=== PATIENT | male | born 1960 | race Caucasian/White ===

== ENCOUNTER 2017-01-09 13:32 | Outpatient (CLI) | payer OTHER ==
[2017-01-09 14:07] LABS: BASOPHILS # (AUTO) 0.1 10^3/uL (0.0-0.1); BASOPHILS % (AUTO) 0.9 %; EOSINOPHILS # (AUTO) 0.1 10^3/uL (0.0-0.7); EOSINOPHILS % (AUTO) 0.8 %; HCT - HEMATOCRIT 41.2 % (42.0-52.0); HGB - HEMOGLOBIN 14.4 g/dL (14.0-18.0); LYMPHOCYTES # (AUTO) 1.8 10^3/uL (1.5-3.5); LYMPHOCYTES % (AUTO) 24.8 %; MEAN CORPUSCULAR HEMOGLOBIN 29.7 pg (27.0-31.0); MEAN CORPUSCULAR HGB CONC 34.9 g/dL (32.0-36.0); MEAN PLATELET VOLUME 8.9 fL (7.4-11.4); MONOCYTES # (AUTO) 0.5 10^3/uL (0.0-1.0); MONOCYTES % (AUTO) 7.4 %; NEUTROPHILS # (AUTO) 4.8 10^3/uL (1.5-6.6); NEUTROPHILS % (AUTO) 66.1 %; RED BLOOD COUNT 4.85 10^6/uL (4.70-6.10); RED CELL DISTRIBUTION WIDTH 13.6 % (12.0-15.0); UNCORRECTED WHITE BLOOD COUNT 7.3 x10^3/uL; WHITE BLOOD COUNT 7.3 x10^3/uL (4.8-10.8)
[2017-01-09 14:54] LABS: ALBUMIN/GLOBULIN RATIO 1.4 (1.0-2.2); BILIRUBIN,TOTAL 1.1 mg/dL (0.2-1.0); BUN - BLOOD UREA NITROGEN 13 mg/dL (6-20); CALCIUM 9.3 mg/dL (8.5-10.3); CARBON DIOXIDE - CO2 23 mmol/L (21-32); CHLORIDE 105 mmol/L (101-111); CHOLESTEROL 204 mg/dL; CREATININE 1.1 mg/dL (0.6-1.2); GFR - MDRD 70 (>89); GLUCOSE 87 mg/dL (70-100); HDL CHOLESTEROL 29 mg/dL; LDL/HDL RATIO 4.8 (<3.6); POTASSIUM 4.1 mmol/L (3.5-5.0); SODIUM 136 mmol/L (135-145); TOTAL PROTEIN 7.3 g/dL (6.7-8.2); TRIGLYCERIDES 182 mg/dL; VLDL CHOLESTEROL 36 mg/dL
== END 2017-01-09 13:33 | disposition home or self-care (01) ==
LOC: LAB 13:32
PROVIDERS: ATTEND Family Medicine
DX: Z00.00 Encounter for general adult medical examination without abnormal findings (principal)
CPT/HCPCS: 36415; 80053; 80061; 84153; 84443; 85025

== ENCOUNTER 2018-09-19 15:30 | Outpatient (CLI) | payer OTHER, BC ==
--- NOTE | 2018-09-23 07:42 | CT Report ---
Reason: TRANSIANT SPEECH DISTURBANCE Procedure Date: 09/19/2018 Accession Number: [id number] / [id number] Procedure: CT - HEAD WO CPT Code: FULL RESULT: EXAM: CT HEAD EXAM DATE: 09/19/2018 03:30 PM. CLINICAL HISTORY: Transient speech disturbance. COMPARISON: None. TECHNIQUE: Multiaxial CT images were obtained from the foramen magnum to the vertex. Reformats: Sagittal and coronal. IV contrast: None. In accordance with CT protocol optimization, one or more of the following dose reduction techniques were utilized for this exam: automated exposure control, adjustment of mA and/or KV based on patient size, or use of iterative reconstructive technique. FINDINGS: Parenchyma: No intraparenchymal hemorrhage. No evidence of mass, midline shift. Galvan-white differentiation is distinct. Extraaxial Spaces: Normal for age. No subdural or epidural collections identified. Ventricles: Normal in size and position. Sinuses and Orbits: Imaged paranasal sinuses, orbits, and mastoids show no significant abnormality. Bones: No evidence of fracture or calvarial defect. Other: None. IMPRESSION: Normal head CT. RADIA
== END 2018-09-19 15:31 | disposition home or self-care (01) ==
LOC: DI 15:30
PROVIDERS: ATTEND Family Medicine
DX: R47.89 Other speech disturbances (principal)
CPT/HCPCS: 70450

== ENCOUNTER 2018-09-25 11:16 | Outpatient (CLI) | payer OTHER, BC ==
[2018-09-25 11:34] LABS: BASOPHILS % (AUTO) 0.6 %; EOSINOPHILS # (AUTO) 0.1 10^3/uL (0.0-0.7); EOSINOPHILS % (AUTO) 1.3 %; HGB - HEMOGLOBIN 14.2 g/dL (14.0-18.0); LYMPHOCYTES # (AUTO) 1.4 10^3/uL (1.5-3.5); LYMPHOCYTES % (AUTO) 21.5 %; MEAN CORPUSCULAR HEMOGLOBIN 29.3 pg (27.0-31.0); MEAN CORPUSCULAR HGB CONC 33.9 g/dL (32.0-36.0); MEAN CORPUSCULAR VOLUME 86.4 fL (80.0-94.0); MEAN PLATELET VOLUME 8.5 fL (7.4-11.4); MONOCYTES # (AUTO) 0.5 10^3/uL (0.0-1.0); MONOCYTES % (AUTO) 7.2 %; NEUTROPHILS # (AUTO) 4.5 10^3/uL (1.5-6.6); NEUTROPHILS % (AUTO) 69.4 %; PLT - PLATELET COUNT 211 10^3/uL (130-450); RED BLOOD COUNT 4.85 10^6/uL (4.70-6.10); RED CELL DISTRIBUTION WIDTH 13.3 % (12.0-15.0); WHITE BLOOD COUNT 6.4 x10^3/uL (4.8-10.8)
[2018-09-25 12:02] LABS: ALBUMIN 4.2 g/dL (3.2-5.5); ALBUMIN/GLOBULIN RATIO 1.2 (1.0-2.2); ALKALINE PHOSPHATASE 67 IU/L (42-121); ALT ALANINE AMINOTRANSFERASE 22 IU/L (10-60); AST ASPARTATE AMINOTRANSFERASE 30 IU/L (10-42); BILIRUBIN,TOTAL 0.7 mg/dL (0.2-1.0); BUN - BLOOD UREA NITROGEN 15 mg/dL (6-20); CALCIUM 8.9 mg/dL (8.5-10.3); CARBON DIOXIDE - CO2 23 mmol/L (21-32); CHLORIDE 103 mmol/L (101-111); CHOL/HDL RATIO 6.5 (<5.0); CHOLESTEROL 235 mg/dL; GFR - MDRD 77 (>89); GLUCOSE 102 mg/dL (70-100); HDL CHOLESTEROL 36 mg/dL; LDL CHOLESTEROL,CALCULATED 167 mg/dL; LDL/HDL RATIO 4.6 (<3.6); SODIUM 135 mmol/L (135-145); TOTAL PROTEIN 7.7 g/dL (6.7-8.2); VLDL CHOLESTEROL 32 mg/dL
[2018-09-26 12:57] LABS: HEPATITIS B SURFACE ANTIGEN NON-REACTIVE (NON-REACTIVE)
== END 2018-09-25 11:17 | disposition home or self-care (01) ==
LOC: LAB 11:16
PROVIDERS: ATTEND Family Medicine
DX: Z00.00 Encounter for general adult medical examination without abnormal findings (principal); E78.5 Hyperlipidemia, unspecified; Z11.59 Encounter for screening for other viral diseases
CPT/HCPCS: 36415; 80053; 80061; 83721; 84153; 84443; 85025; 87340

== ENCOUNTER 2022-02-27 13:41 | Outpatient (CLI) | payer OTHER ==
[2022-02-27 20:09] LABS: BASOPHILS % (AUTO) 0.4 %; EOSINOPHILS # (AUTO) 0.1 10^3/uL (0.0-0.7); EOSINOPHILS % (AUTO) 1.1 %; HCT - HEMATOCRIT 44.6 % (42.0-52.0); HGB - HEMOGLOBIN 15.3 g/dL (14.0-18.0); LYMPHOCYTES # (AUTO) 1.4 10^3/uL (1.5-3.5); LYMPHOCYTES % (AUTO) 25.1 %; MEAN CORPUSCULAR HEMOGLOBIN 30.1 pg (27.0-31.0); MEAN CORPUSCULAR HGB CONC 34.3 g/dL (32.0-36.0); MEAN CORPUSCULAR VOLUME 87.8 fL (80.0-94.0); MEAN PLATELET VOLUME 11.7 fL (7.4-11.4); MONOCYTES # (AUTO) 0.5 10^3/uL (0.0-1.0); MONOCYTES % (AUTO) 8.1 %; NEUTROPHILS # (AUTO) 3.7 10^3/uL (1.5-6.6); NEUTROPHILS % (AUTO) 64.9 %; PLT - PLATELET COUNT 217 10^3/uL (130-450); RED BLOOD COUNT 5.08 10^6/uL (4.70-6.10); RED CELL DISTRIBUTION WIDTH 12.7 % (12.0-15.0); WHITE BLOOD COUNT 5.7 x10^3/uL (4.8-10.8)
[2022-02-27 20:34] LABS: THYROID STIMULATING HORMONE 1.5 uIU/mL (0.34-5.60)
[2022-02-27 20:35] LABS: ALBUMIN 4.3 g/dL (3.2-5.5); ALBUMIN/GLOBULIN RATIO 1.2 (1.0-2.2); ALKALINE PHOSPHATASE 61 IU/L (42-121); ALT ALANINE AMINOTRANSFERASE 25 IU/L (10-60); AST ASPARTATE AMINOTRANSFERASE 25 IU/L (10-42); BILIRUBIN,TOTAL 0.7 mg/dL (0.2-1.0); BUN - BLOOD UREA NITROGEN 17 mg/dL (6-20); CALCIUM 9.4 mg/dL (8.5-10.3); CARBON DIOXIDE - CO2 22 mmol/L (21-32); CHLORIDE 107 mmol/L (101-111); CHOL/HDL RATIO 6.8 (<5.0); CHOLESTEROL 226 mg/dL; CREATININE 1.1 mg/dL (0.6-1.2); GFR - MDRD 69 (>89); GLUCOSE 95 mg/dL (70-100); HDL CHOLESTEROL 33 mg/dL; LDL CHOLESTEROL,CALCULATED 129 mg/dL; LDL/HDL RATIO 3.9 (<3.6); SODIUM 137 mmol/L (135-145); TOTAL PROTEIN 7.9 g/dL (6.7-8.2); TRIGLYCERIDES 320 mg/dL; VLDL CHOLESTEROL 64 mg/dL
[2022-02-27 21:13] LABS: ESTIMATED AVERAGE GLUCOSE 91 mg/dL (70-100); HEMOGLOBIN A1c% 4.8 % (4.27-6.07)
== END 2022-02-27 13:42 | disposition home or self-care (01) ==
LOC: LAB.S 13:41
PROVIDERS: ATTEND Family Medicine
DX: Z00.00 Encounter for general adult medical examination without abnormal findings (principal)
CPT/HCPCS: 36415; 80053; 80061; 83036; 83721; 84153; 84443; 85025

== ENCOUNTER 2023-08-16 13:16 | Outpatient (CLI) | payer OTHER ==
[2023-08-16 13:30] LABS: HCT - HEMATOCRIT 23.8 % (42.0-52.0); LYMPHOCYTES # (AUTO) 0.7 10^3/uL (1.5-3.5); LYMPHOCYTES % (AUTO) 69.1 %; MEAN CORPUSCULAR HEMOGLOBIN 35.6 pg (27.0-31.0); MEAN CORPUSCULAR HGB CONC 33.6 g/dL (32.0-36.0); MEAN CORPUSCULAR VOLUME 105.8 fL (80.0-94.0); MEAN PLATELET VOLUME 9.8 fL (7.4-11.4); MONOCYTES % (AUTO) 4.3 %; NEUTROPHILS % (AUTO) 26.6 %; NRBC ABSOLUTE COUNT (AUTO) 0.03 x10^3/uL; NUCLEATED RED BLOOD CELLS AUTO 3.2 /100WBC; PLT - PLATELET COUNT 71 10^3/uL (130-450); RED BLOOD COUNT 2.25 10^6/uL (4.70-6.10); RED CELL DISTRIBUTION WIDTH 20.9 % (12.0-15.0)
[2023-08-16 13:47] LABS: ALBUMIN 4.4 g/dL (3.2-5.5); ALBUMIN/GLOBULIN RATIO 1.5 (1.0-2.2); ALKALINE PHOSPHATASE 62 IU/L (42-121); ALT ALANINE AMINOTRANSFERASE 13 IU/L (10-60); AST ASPARTATE AMINOTRANSFERASE 15 IU/L (10-42); BILIRUBIN,TOTAL 0.8 mg/dL (0.2-1.0); BUN - BLOOD UREA NITROGEN 20 mg/dL (6-20); CALCIUM 9.2 mg/dL (8.5-10.3); CARBON DIOXIDE - CO2 24 mmol/L (21-32); CHLORIDE 107 mmol/L (101-111); CHOL/HDL RATIO 5.7 (<5.0); CHOLESTEROL 147 mg/dL; CREATININE 1.1 mg/dL (0.6-1.3); GFR - MDRD 68 (>89); GLUCOSE 94 mg/dL (74-104); HDL CHOLESTEROL 26 mg/dL; LDL CHOLESTEROL,CALCULATED 87 mg/dL; LDL/HDL RATIO 3.3 (<3.6); SODIUM 136 mmol/L (135-145); TOTAL PROTEIN 7.3 g/dL (6.4-8.9); TRIGLYCERIDES 168 mg/dL (48-352); VLDL CHOLESTEROL 34 mg/dL
[2023-08-16 13:52] LABS: NEUTROPHILS # (AUTO) 0.3 10^3/uL (1.5-6.6); SLIDE REVIEW? Indicated; WHITE BLOOD COUNT 0.9 x10^3/uL (4.8-10.8)
[2023-08-16 13:53] LABS: RBC MORPHOLOGY (MULTIPLE) 4+ ANISOCYTOSIS (NORMAL)
[2023-08-16 14:07] LABS: THYROID STIMULATING HORMONE 1.74 uIU/mL (0.34-5.60)
== END 2023-08-16 13:17 | disposition home or self-care (01) ==
LOC: LAB 13:16
PROVIDERS: ATTEND Family Medicine
DX: E78.2 Mixed hyperlipidemia (principal); I10 Essential (primary) hypertension; Z12.5 Encounter for screening for malignant neoplasm of prostate; Z13.220 Encounter for screening for lipoid disorders; Z13.6 Encounter for screening for cardiovascular disorders; Z13.29 Encounter for screening for other suspected endocrine disorder
CPT/HCPCS: 36415; 80053; 80061; 83721; 84153; 84443; 85025

== ENCOUNTER 2023-08-17 07:46 | Outpatient (CLI) | payer OTHER | END 2023-08-17 23:59 | disposition critical access hospital (66) | LOC: EMS 07:46 | DX: R42 Dizziness and giddiness (principal); R55 Syncope and collapse | CPT/HCPCS: A0425; A0427 ==

== ENCOUNTER 2023-08-17 08:35 | Emergency (ER) | payer OTHER ==
[2023-08-17 09:16] LABS: HCT - HEMATOCRIT 22.7 % (42.0-52.0); HGB - HEMOGLOBIN 7.8 g/dL (14.0-18.0); LYMPHOCYTES # (AUTO) 0.4 10^3/uL (1.5-3.5); LYMPHOCYTES % (AUTO) 55.7 %; MEAN CORPUSCULAR HEMOGLOBIN 35.9 pg (27.0-31.0); MEAN CORPUSCULAR HGB CONC 34.4 g/dL (32.0-36.0); MEAN CORPUSCULAR VOLUME 104.6 fL (80.0-94.0); MEAN PLATELET VOLUME 9.7 fL (7.4-11.4); MONOCYTES # (AUTO) 0.1 10^3/uL (0.0-1.0); MONOCYTES % (AUTO) 7.1 %; NEUTROPHILS % (AUTO) 37.2 %; NRBC ABSOLUTE COUNT (AUTO) 0.02 x10^3/uL; NUCLEATED RED BLOOD CELLS AUTO 2.9 /100WBC; PLT - PLATELET COUNT 68 10^3/uL (130-450); RED BLOOD COUNT 2.17 10^6/uL (4.70-6.10)
[2023-08-17] MEDS: SODIUM CHLORIDE 0.9% 1,000 ML IV STA (09:16)
--- NOTE | 2023-08-17 09:16 | ED Physician Documentation ---
History of Present Illness - Stated complaint Stated Complaint: DIZZY - Chief complaint Chief Complaint: Neuro - History obtained from History obtained from: Patient - Additonal information Additional information: Patient is a 63-year-old male presenting for evaluation of feeling dizzy and lightheaded starting this morning while he was in the shower. Patient states that he had blood work done yesterday by his PCP as he had recently been feeling unwell. He was told that his blood counts were low and that he should come to the emergency department last night around 5 PM but he states he did not feel up to it. This morning he was in a drive himself but while in the shower started feeling lightheaded as if he was going to faint so called 911. He reports feeling better with sitting down and having his head hanging down. Denies headache, chest pain, shortness of air. Has had a productive cough for the last few days. is ill with GI and cold-like symptoms at home. Patient denies abdominal pain, vomiting or diarrhea. He does report having decreased appetite recently. EMS reports that he was positive for orthostatics. Patient's only medication is omeprazole. He denies drug or alcohol use. Denies head injury. Review of Systems Constitutional: denies: Fever Cardiac: denies: Chest pain / pressure Respiratory: reports: Cough. denies: Dyspnea GI: denies: Abdominal Pain, Vomiting : denies: Dysuria Musculoskeletal: denies: Extremity swelling Neurologic: denies: Syncope, Headache PD PAST MEDICAL HISTORY - Past Medical History Past Medical History: Yes GI: GERD - Past Surgical History Past Surgical History: Yes General: Appendectomy - Allergies Allergies/Adverse Reactions: Allergies Allergy/AdvReac Type Severity Reaction Status Date / Time No Known Drug Allergies Allergy Verified 08/17/23 08:51 - Social History Does the pt smoke?: No Smoking Status: Never smoker Does the pt drink ETOH?: No Does the pt have substance abuse?: No - Immunizations Immunizations are current?: Yes - POLST Patient has POLST: No PD ED PE NORMAL - General General: Alert and oriented X 3, No acute distress, Well developed/nourished - HEENT HEENT: Atraumatic, PERRL, EOMI, Moist mucous membranes, Pharynx benign, Other (No nystagmus) - Neck Neck: Supple, no meningeal sign - Cardiac Cardiac: RRR, Strong equal pulses - Respiratory Respiratory: No respiratory distress, Clear bilaterally - Abdomen Abdomen: Normal bowel sounds, Soft, Non tender, Non distended - Derm Derm: Warm and dry - Extremities Extremities: No edema - Neuro Neuro: Alert and oriented X 3, dispatch lead 2-12 intact, No motor deficit, No sensory deficit, Normal speech Eye Opening: Spontaneous Motor: Obeys Commands Verbal: Oriented GCS Score: 15 Results - Vitals Vitals: Vital Signs - 24 hr 08/17/23 08/17/23 08/17/23 08:42 13:08 13:48 Temperature 36.5 C Heart Rate 97 95 Heart Rate [ 94 Sitting] Heart Rate [ 106 H Standing] Heart Rate [ 94 Supine] Respiratory 24 21 Rate Blood Pressure 139/91 H 143/88 H Blood Pressure 149/92 H [Sitting] Blood Pressure 145/95 H [Standing] Blood Pressure 149/80 H [Supine] O2 Saturation 98 100 08/17/23 15:41 Temperature 36.8 C Heart Rate 96 Heart Rate [ Sitting] Heart Rate [ Standing] Heart Rate [ Supine] Respiratory 18 Rate Blood Pressure 162/108 H Blood Pressure [Sitting] Blood Pressure [Standing] Blood Pressure [Supine] O2 Saturation 98 Oxygen O2 Source Room air - EKG (time done) 0902 EKG releavant findings:: EKG personally interpreted by author of this note. Relevant findings are: Rate 93, normal sinus rhythm, no STEMI, QTc 452 - Labs Labs: Laboratory Tests 08/17/23 08/17/23 08/17/23 09:09 09:09 09:09 WBC 0.7 L* RBC 2.17 L Hgb 7.8 L Hct 22.7 L MCV 104.6 H MCH 35.9 H MCHC 34.4 RDW 21.0 H Plt Count 68 L MPV 9.7 Neut # (Auto) 0.3 L* Lymph # (Auto) 0.4 L [place] # (Auto) 0.1 Eos # (Auto) 0.0 Baso # (Auto) 0.0 Absolute Nucleated RBC 0.02 Nucleated RBC % 2.9 Manual Slide Review Indicated RBC Morph Micro Appear 4+ ANISOCYTOSIS Sodium 139 Potassium 4.1 Chloride 110 Carbon Dioxide 23 Anion Gap 6.0 BUN 18 Creatinine 1.1 Estimated GFR (MDRD) 68 L Glucose 104 Calcium 8.9 Total Bilirubin 0.7 AST 13 ALT 12 Alkaline Phosphatase 57 Troponin I High Sens 7.3 Total Protein 6.6 Albumin 4.1 Globulin 2.5 Albumin/Globulin Ratio 1.6 Lipase 19 Nasal Adenovirus (PCR) Nasal B. parapertussis DNA (PCR) Nasal Coronavir 229E PCR Nasal Coronavir HKU1 PCR Nasal Coronavir NL63 PCR Nasal Coronavir OC43 PCR Nasal Enterovir/Rhinovir PCR Nasal Influenza B PCR Nasal Influenza A PCR Nasal Parainfluen 1 PCR Nasal Parainfluen 2 PCR Nasal Parainfluen 3 PCR Nasal Parainfluen 4 PCR Nasal RSV (PCR) Nasal B.pertussis DNA PCR Nasal C.pneumoniae (PCR) Valentín Human Metapneumo PCR Nasal M.pneumoniae (PCR) Nasal SARS-CoV-2 (PCR) Blood Type A NEGATIVE Blood Type Recheck Antibody Screen NEGATIVE 08/17/23 08/17/23 09:11 10:08 WBC RBC Hgb Hct MCV MCH MCHC RDW Plt Count MPV Neut # (Auto) Lymph # (Auto) [place] # (Auto) Eos # (Auto) Baso # (Auto) Absolute Nucleated RBC Nucleated RBC % Manual Slide Review RBC Morph Micro Appear Sodium Potassium Chloride Carbon Dioxide Anion Gap BUN Creatinine Estimated GFR (MDRD) Glucose Calcium Total Bilirubin AST ALT Alkaline Phosphatase Troponin I High Sens Total Protein Albumin Globulin Albumin/Globulin Ratio Lipase Nasal Adenovirus (PCR) NOT DETECTED Nasal B. parapertussis DNA (PCR) NOT DETECTED Nasal Coronavir 229E PCR NOT DETECTED Nasal Coronavir HKU1 PCR NOT DETECTED Nasal Coronavir NL63 PCR NOT DETECTED Nasal Coronavir OC43 PCR NOT DETECTED Nasal Enterovir/Rhinovir PCR NOT DETECTED Nasal Influenza B PCR NOT DETECTED Nasal Influenza A PCR NOT DETECTED Nasal Parainfluen 1 PCR NOT DETECTED Nasal Parainfluen 2 PCR NOT DETECTED Nasal Parainfluen 3 PCR NOT DETECTED Nasal Parainfluen 4 PCR NOT DETECTED Nasal RSV (PCR) NOT DETECTED Nasal B.pertussis DNA PCR NOT DETECTED Nasal C.pneumoniae (PCR) NOT DETECTED Valentín Human Metapneumo PCR NOT DETECTED Nasal M.pneumoniae (PCR) NOT DETECTED Nasal SARS-CoV-2 (PCR) NOT DETECTED Blood Type Blood Type Recheck A NEGATIVE Antibody Screen PD Medical Decision Making - ED course Complexity details: reviewed results, re-evaluated patient, d/w patient, d/w family (Son) ED course: Patient is a 63-year-old male presenting for evaluation of feeling lightheaded and near syncopal this morning. Had outpatient testing yesterday which showed abnormal labs. EKG reviewed and nonischemic. CBC, chemistries, troponin were obtained and reviewed. Patient has labs significant for pancytopenia with hemoglobin of 7.8 WBC 0.7 with ANC of 300, platelets 68,000. Respiratory swab negative. Normal neuroexam but given thrombocytopenia and headache I did obtain a CT head which is negative for an intracranial hemorrhage. Chest x-ray which I reviewed also shows no pneumonia. No effusion. Respiratory swab is negative. Patient feeling better here after IV fluids. However I am concerned given his new onset pancytopenia without clear etiology. He is not on any other medications other than omeprazole. He denies alcohol use. I am concerned for potential malignancy and have relayed my concerns with the patient and the need for transfer to try and expedite his workup. Discussed with [facility] who also agrees and was working on the transfer. Through the morning and early afternoon patient was becoming quite impatient and wanting to leave. We had several conversations including with his son in the room to discuss the risks and benefits of transfer and what my concerns were. He indicates understanding. He appears to have appropriate judgment and the ability to make his own decisions. I did order him a meal tray and offered to make his stay as comfortable as possible as we were attempting transfer. However patient has been adamant that he wants to leave and understands this is AGAINST MEDICAL ADVICE. [facility] did reach back out that they have an accepting provider at [facility] which I also explained to the patient that we just need to wait for the bed to become available before we could transfer. However he states he really just would like to go home.He can understands the risks of leaving but also understands that he can return to the emergency at any time. I also explained that he should absolutely return if he develops any worsening symptoms or a fever. He also indicates understanding of this. I reach back out to [facility] who states they will attempt to try and get him in sooner with a semiconductor wafers etch operator oncologist.Patient is ambulatory at discharge. D/W Dr. Garza @ [facility] - Will work on transfer. [id number] - Pt aware that [facility] accepted - However he is still declining to stay and be transferred. He gives no other specific reasons other than he does not want to be here and wants to go home and feels like he is being held hostage. He does report feeling appreciative With the care thus far and does understand that we have been trying to help him. Also D/W [facility] That patient is leaving AGAINST MEDICAL ADVICE who will reach out to their heme/onc and try to help arrange for outpatient follow up. Departure - Departure Disposition: Against Medical Advice Clinical Impression: Pancytopenia Condition: Stable Instructions: Thrombocytopenia, ED Anemia Type Not Specified Follow-Up: SILVA GUILLEN MD [Physician No Access] - [facility] [Provider Group] (Your insurance [facility] may be able to get you quicker outpatient follow up with a specialist - please call today) Comments: Your white blood cells, red blood cells and your platelets are all severely low. It is unclear what is causing your blood cell counts to be so low but I am concerned it could be related to a process like cancer. We have recommended transfer to a larger hospital that is capable of evaluating this further with a specialist called a semiconductor wafers etch operator or oncologist. [facility] has been working on the transfer And they are hopeful to have a bed at some point today. However you are not wanting to stay in the hospital and after reviewing the risks of leaving you are still wanting to be discharged. You need to reach out to [facility] and your primary care provider soon as possible to help arrange for outpatient testing. If you develop a fever at any point you should return immediately to the emergency department as you are severely immunocompromised with your white blood cells being so low. In addition if you are feeling worse in any sort of way such as feeling dizzy, lightheaded, Chest pain, shortness of air, blood in stools you should come back to the ER. You are welcome to return at any point if you change your mind. Forms: PCP List Discharge Date/Time: 08/17/23 15:40
[2023-08-17 09:33] LABS: WHITE BLOOD COUNT 0.7 x10^3/uL (4.8-10.8)
[2023-08-17 09:34] LABS: NEUTROPHILS # (AUTO) 0.3 10^3/uL (1.5-6.6); SLIDE REVIEW? Indicated
[2023-08-17 09:36] LABS: ALBUMIN 4.1 g/dL (3.2-5.5); ALBUMIN/GLOBULIN RATIO 1.6 (1.0-2.2); BILIRUBIN,TOTAL 0.7 mg/dL (0.2-1.0); CALCIUM 8.9 mg/dL (8.5-10.3); CREATININE 1.1 mg/dL (0.6-1.3); POTASSIUM 4.1 mmol/L (3.5-4.5); TOTAL PROTEIN 6.6 g/dL (6.4-8.9)
[2023-08-17 09:39] LABS: TROPONIN I HIGH SENSITIVITY 7.3 ng/L (2.3-19.7)
--- NOTE | 2023-08-17 09:43 | XRAY Report ---
PROCEDURE: Chest 1V INDICATIONS: cough TECHNIQUE: One view of the chest was acquired. COMPARISON: None. FINDINGS: Surgical changes and devices: None. Lungs and pleura: No pleural effusions or pneumothorax. Lungs are clear. Mediastinum: Mediastinal contours appear normal. Heart size is normal. Bones and chest wall: No suspicious bony lesions. Overlying soft tissues appear unremarkable. IMPRESSION: No acute cardiopulmonary process. Reviewed by: Carlee Phillips MD on 08/17/2023 9:41 AM [facility] Approved by: Carlee Phillips MD on 08/17/2023 9:41 AM [facility] Station ID: [id number]
--- NOTE | 2023-08-17 09:44 | CT Report ---
PROCEDURE: Head WO INDICATIONS: dizziness/new onset pancytopenia TECHNIQUE: Noncontrast 4.5 mm thick angled axial sections acquired from the foramen magnum to the vertex. For r adiation dose reduction, the following was used: automated exposure control, adjustment of mA and/or kV according to patient size. COMPARISON: CT Head 09/19/18 FINDINGS: Image quality: Excellent. CSF spaces: Basal cisterns are patent. No extra-axial fluid collections. Ventricles are normal in size and shape. Brain: No midline shift. No intracranial masses or hemorrhage. Galvan-white matter interface is norm al. Skull and face: Calvarium and visualized facial bones are intact, without suspicious lesions. Sinuses: Visualized sinuses demonstrate mild scattered mucosal thickening in the maxillary sinuses. IMPRESSION: No acute intracranial pathology. Reviewed by: Carlee Phillips MD on 08/17/2023 9:43 AM [facility] Approved by: Carlee Phillips MD on 08/17/2023 9:43 AM [facility] Station ID: [id number]
[2023-08-17 09:53] LABS: RBC MORPHOLOGY (MULTIPLE) 4+ ANISOCYTOSIS (NORMAL)
[2023-08-17 10:10] LABS: CORONAVIRUS 229E-RESP PCR NOT DETECTED; CORONAVIRUS HKU1-RESP PCR NOT DETECTED; CORONAVIRUS NL63-RESP PCR NOT DETECTED; CORONAVIRUS OC43-RESP PCR NOT DETECTED; HUMAN METAPNEUMOVIRUS NOT DETECTED; INFLUENZA A- RESP PCR PANEL NOT DETECTED; RHINOVIRUS/ENTEROVIRUS NOT DETECTED; SARS-CoV-2 -RESP PCR PANEL NOT DETECTED
[2023-08-17 10:11] LABS: B. PARAPERTUSSIS- RESP PCR PAN NOT DETECTED; B. PERTUSSIS- RESP PCR PANEL NOT DETECTED; C. PNEUMONIAE- RESP PCR PANEL NOT DETECTED; INFLUENZA B - RESP PCR PANEL NOT DETECTED; M. PNEUMONIAE- RESP PCR PANEL NOT DETECTED; PARAINFLUENZA VIRUS 1 NOT DETECTED; PARAINFLUENZA VIRUS 2 NOT DETECTED; PARAINFLUENZA VIRUS 3 NOT DETECTED; PARAINFLUENZA VIRUS 4 NOT DETECTED; RSV- RESP PCR PANEL NOT DETECTED
[2023-08-17 15:43] VITALS: BP 162/108; O2SAT 98
== END 2023-08-17 15:40 | disposition left against medical advice (07) ==
LOC: EDUNIT# → ED 08:35
DX: D61.818 Other pancytopenia (principal); Z11.52 Encounter for screening for COVID-19
CPT/HCPCS: 36415; 80053; 83690; 84484; 85025; 86850; 86900; 86901; 87633; 93005; 99284